=== PATIENT | female | born 1980 | race African-American/Black ===

== ENCOUNTER 2021-08-24 08:14 | Inpatient (IN) | payer BC ==
[~2021-08-24] VITALS: Ht 315 cm; Wt 27.2 kg
[2021-08-24] MEDS ORDERED: SODIUM CHLORIDE 0.9% 1,000 ML IV ONE (09:00)
[2021-08-24 09:49] LABS: MEAN CORPUSCULAR VOLUME 56.5 fL (81.0-99.0); MEAN PLATELET VOLUME 8.7 fl (7.4-10.4); PLATELET 637 x1000/uL (130-400); RED BLOOD CELL COUNT 3.82 mill/uL (4.2-5.4); RED CELL DISTRIBUTION WIDTH 25.6 % (11.6-14.6)
[2021-08-24 09:52] LABS: CHLORIDE 109 mEq/L (98-107); HEMOGLOBIN. 5.7 g/dL (12.0-16.0)
[2021-08-24 09:53] LABS: HEMATOCRIT. 21.6 % (36.0-48.0)
[2021-08-24 12:10] LABS: CLARITY URINE CLEAR (CLEAR); COLOR URINE YELLOW (YELLOW); KETONES URINE NEGATIVE (NEGATIVE); LEUKOCYTE ESTERASE URINE TRACE (NEGATIVE); NITRITE URINE NEGATIVE (NEGATIVE); OCCULT BLOOD URINE NEGATIVE (NEGATIVE); PROTEIN URINE NEGATIVE (NEGATIVE); SPECIFIC GRAVITY URINE 1.015 (1.005-1.030); UROBILINOGEN URINE 0.2 E.U./dL (0.2-1.0)
[2021-08-24 14:23] LABS: NUCLEATED RED BLOOD CELLS 1 /100 WBC; PLATELET ESTIMATE INCREASED
[2021-08-24] MEDS ORDERED: ZOLPIDEM TARTRATE 5MG TABLET PO PRN (19:15)
[2021-08-24] MEDS ORDERED: ACETAMINOPHEN 325MG TABLET PO PRN ×2 (19:15)
[2021-08-24] MEDS ORDERED: ONDANSETRON HCL 4MG/2ML INJ IV PRN (19:15)
[2021-08-24] MEDS ORDERED: DIPHENHYDRAMINE 50MG/ML VIAL IV PRN (19:15)
[2021-08-24] MEDS ORDERED: MAGNESIUM/ALUMINUM HYDROXIDE/SIMETHICONE 30ML UDC PO PRN (19:15)
[2021-08-24] MEDS ORDERED: SODIUM CHLORIDE 0.9% 1,000 ML IV SCH (19:30)
[2021-08-24 20:32] LABS: TOTAL IRON BINDING CAPACITY 437 ug/dL (250-450)
[2021-08-24 20:37] LABS: HEMATOCRIT. 23.7 % (36.0-48.0); MEAN CORPUSCULAR HEMOGLOBIN 16.8 pg (28.0-32.0); MEAN CORPUSCULAR VOLUME 59.7 fL (81.0-99.0); MEAN PLATELET VOLUME 8.4 fl (7.4-10.4); PLATELET 553 x1000/uL (130-400); RED BLOOD CELL COUNT 3.97 mill/uL (4.2-5.4); RED CELL DISTRIBUTION WIDTH 31.2 % (11.6-14.6)
[2021-08-24 20:40] LABS: HEMOGLOBIN. 6.7 g/dL (12.0-16.0)
[2021-08-24 21:18] LABS: PLATELET ESTIMATE INCREASED
[2021-08-25 07:31] LABS: HEMATOCRIT 25.4 % (36.0-48.0); HEMOGLOBIN 7.6 g/dL (12.0-16.0); MEAN CORPUSCULAR HEMOGLOBIN 18.4 pg (28.0-32.0); MEAN CORPUSCULAR VOLUME 61.8 fL (81.0-99.0); PLATELET 477 x1000/uL (130-400); RED CELL DISTRIBUTION WIDTH 32.9 % (11.6-14.6)
[2021-08-25] MEDS ORDERED: IRON SUCROSE COMPLEX 100 MG/5 ML ML IV NR (11:30)
[2021-08-25 12:00] VITALS: BP 131/67
[2021-08-25 14:52] VITALS: BP 131/64
[2021-08-25 17:41] VITALS: BP 127/80
== END 2021-08-25 16:00 | disposition home or self-care (01) | DRG 812 ==
LOC: ER 08:14 → MICUSO 12:58 → EDBEDREQTM 13:05 → EDBEDREQSVC 13:05 → EDBEDREQ 13:05 → 6WST 08-25 07:48 → MICUSO 08-25 07:52 → 6EST 08-25 09:59
PROVIDERS: ADMIT Internal Medicine; ATTEND Internal Medicine
PROC: 30233N1 Transfusion of Nonautologous Red Blood Cells into Peripheral Vein, Percutaneous Approach (ICD-10-PCS; principal; 2021-08-24)
DX: D50.8 Other iron deficiency anemias (principal); G90.9 Disorder of the autonomic nervous system, unspecified; F17.200 Nicotine dependence, unspecified, uncomplicated
CPT/HCPCS: 36415; 80053; 81003; 83540; 83550; 85025; 85027; 86850; 86900; 86920; 93005; 99291; J7030; P9016